=== PATIENT | male | born 1985 | race African-American/Black ===

== ENCOUNTER 2021-04-09 09:52 | Emergency (ER) | payer SELFPAY ==
[2021-04-09 10:03] VITALS: BP 137/91; PULSE 95; RESP 18; TEMP 36.1; O2SAT 100
--- NOTE | 2021-04-09 10:12 | ED.MALEGU ---
HPI - Male Genitourinary General Chief complaint: Urogenital-Male Stated complaint: STD Time Seen by Provider: 04/09/21 10:30 Source: patient and RN notes reviewed Mode of arrival: ambulatory Limitations: no limitations History of Present Illness HPI Narrative: 35-year-old male presents with concern for exposure to chlamydia. Reports his sexual partner informed him that she had chlamydia. He denies any symptoms. He denies testicular swelling, redness, pain, penile discharge, abdominal pain, dysuria, urine frequency, urinary urgency. MD Complaint: possible STD exposure Related Data Allergies Allergy/AdvReac Type Severity Reaction Status Date / Time No Known Allergies Allergy Unverified 04/26/14 16:01 Review of Systems Review of Systems: Narrative: CONSTITUTIONAL: Denies malaise, chills, sweats, or fever. GASTROINTESTINAL: Denies abdominal pain, nausea, vomiting, diarrhea, bloody GENITOURINARY: Denies dysuria, penile discharge, testicle swelling, testicle pain, or hematuria. SKIN: Denies lesions, rash or itching. MUSCULOSKELETAL: Denies myalgia. All systems reviewed & are unremarkable except as noted in HPI and below PMFSH Comments At time of signature, agree with nursing past medical, surgical, social and family history. There is no relevant family history pertinent to the presenting complaint Exam Narrative: Exam Narrative: GENERAL: Well-appearing, well-nourished, and in no acute distress. HEAD: Normocephalic. EYES: PERRLA, conjunctivae clear. NECK: Supple. No lymphadenopathy CHEST: Clear to auscultation. No respiratory distress. HEART: Regular rate and rhythm. ABDOMEN: Soft, nontender upon palpation, nondistended, normal active bowel sounds, no palpable or pulsatile masses, no guarding. No CVA tenderness SKIN: Warm, dry, no rash. NEURO: Alert and oriented x3. PSYCH: Normal mood and affect Course Course Emergency Course: Patient is aware of diagnosis, understands and agrees to treatment plan. Anticipatory guidance given. Patient agrees to follow-up as directed and is aware of reasons to seek care at the emergency department. Portions of this record may have been created with voice recognition software Vital Signs Vital signs: Vital Signs Temperature 97.0 F L 04/09/21 10:03 Pulse Rate 95 04/09/21 10:03 Respiratory Rate 18 04/09/21 10:03 Blood Pressure 137/91 H 06/18/21 10:03 Pulse Oximetry 100 04/09/21 10:03 Temperature 97.0 F L 04/09/21 10:03 Pulse Rate 95 04/09/21 10:03 Respiratory Rate 18 04/09/21 10:03 Blood Pressure 137/91 H 04/09/21 10:03 Pulse Oximetry 100 04/09/21 10:03 Reviewed. Pt has been instructed to follow up with his primary care provider within the next week regarding his elevated blood pressure today. MDM - Male Genitourinary MDM Narrative Medical decision making narrative: Exam findings show no acute concerns or changes; patient is non-toxic appearing and is in no distress. Patient is appropriate for outpatient treatment and follow-up. Differential Diagnosis Differential diagnosis: Likely urinary tract infection, urethritis, genital herpes simplex and other (STD) Critical Care Time Critical Care Time Critical Care Time: No Discharge Plan Discharge Clinical Impression: Possible exposure to STD Patient Disposition: Home, Self-Care Condition: Stable Instructions: Antibiotic Form, Safe Sex Practices (ED) Additional Instructions: You have been tested for potential gonorrhea, chlamydia, and trichomoniasis today. You have received antibiotics for gonorrhea and chlamydia today, a prescription has been called into your pharmacy to treat trichomoniasis. You will receive a phone call in 2-3 days with the results of today's testing. It is very important that you avoid unprotected intercourse for 7 days and until your partner(s) have been treated. Please encourage your partner(s) to seek testing and treatment. When you have been exposed to sexually transmi
--- NOTE | 2021-04-09 10:13 | PC.NURSE ---
in br to attempt to collect urine spec.
[2021-04-09] MEDS: cefTRIAXone 1 GM VIAL 0.5 GM IM (11:11)
[2021-04-09] MEDS: AZITHROMYCIN 250 MG TABLET 1000 MG PO (11:12)
[2021-04-09] MEDS: LIDOCAINE HCL 1% LOCAL INJ 20 ML VIAL 2.1 ML INFILTRATE (11:12)
== END 2021-04-09 11:32 | disposition home or self-care (01) ==
PROVIDERS: Emergency Provider Nurse Practitioner
DX: Z20.2 Contact with and (suspected) exposure to infections with a predominantly sexual mode of transmission (principal)
CPT/HCPCS: 87491; 87591; 87661; 96372; 99213; A9270; G0463; J0696

== ENCOUNTER 2022-10-05 23:38 | Emergency (ER) | payer SELFPAY ==
[2022-10-05 23:40] VITALS: BP 141/83; PULSE 91; RESP 18; TEMP 36.6; O2SAT 100
--- NOTE | 2022-10-05 23:58 | PC.NURSE ---
patient states that the area is actually on his buttocks states is is sore and red
--- NOTE | 2022-10-06 00:18 | ED.WOUNDLAC ---
HPI - Wound/Laceration General Chief Complaint: Wound/Laceration Stated Complaint: boil posterior thigh Time Seen by Provider: 10/06/22 00:00 Source: patient Mode of arrival: ambulatory Limitations: no limitations History of Present Illness HPI narrative: 37-year-old male presents today with complaints of pain to the left buttock area. Patient states he noticed a abscess on Monday and pain has progressively gotten worse. Patient denies any drainage, fever, body aches, chills. Patient believes he had a similar episode in the past but it went away. Related Data Allergies Allergy/AdvReac Type Severity Reaction Status Date / Time No Known Allergies Allergy Unverified 10/05/22 23:43 Review of Systems Review of Systems: CONSTITUTIONAL: Denies fever, chills, or sweats. CARDIOVASCULAR: Denies chest pain, palpitations, or edema. RESPIRATORY: Denies cough or dyspnea. GASTROINTESTINAL: Denies abdominal pain, nausea, vomiting, or diarrhea. GENITOURINARY: Denies dysuria or hematuria. SKIN: Abscess to buttock area. Denies rash or itching. Exam Narrative: GENERAL: Well-appearing, well-nourished, and in no acute distress. HEAD: Normocephalic, atraumatic. CHEST: Clear to auscultation. No respiratory distress. No wheezes rales or rhonchi HEART: Regular rate and rhythm. No murmur heard. Normal peripheral pulses. ABDOMEN: Soft, nontender, nondistended, normal active bowel sounds. SKIN: Warm, dry, no rash. Approximate 1-1/2 cm in diameter fluctuant area noted right of the rectum. No erythema noted. Area is tender. NEURO: No focal deficits. Alert and oriented x3. PSYCH: Normal mood and affect. Course Vital Signs Vital signs: Vital Signs Temperature 97.8 F 10/05/22 23:40 Pulse Rate 91 10/05/22 23:40 Respiratory Rate 18 10/05/22 23:40 Blood Pressure 141/83 H 10/05/22 23:40 Pulse Oximetry 100 10/05/22 23:40 Oxygen Delivery Room Air 10/05/22 23:40 Temperature 97.8 F 10/05/22 23:40 Pulse Rate 91 10/05/22 23:40 Respiratory Rate 18 10/05/22 23:40 Blood Pressure 141/83 H 10/05/22 23:40 Pulse Oximetry 100 10/05/22 23:40 Oxygen Delivery Room Air 10/05/22 23:40 Procedures Abscess I/D randall-rectal: Date of Incision: 10/06/22 Time of Incision: 00:50 Side (if applicable): right Sedation/analgesia: none Local Anesthetic: lidocaine 1% and with epi Amount of anesthesia used (mL): 3 Technique: incised with #11 blade and probed loculations Amount of fluid expressed (mL): 10 Irrigation: Yes (saline) Packing used?: none I&D Results: Pus and Blood Complications: pain Abcess I&D Additional Comments: fluctuant area of 1.5 cm diameter. Incision of 1cm made with 11 blade. Purulent drainage expressed. area probed and irrigated. Patient tolerated well with some pain noted. MDM - Wound/Laceration MDM Narrative Medical decision making narrative: 29-year-old male HPI as noted. Differentials as below. Small area of 1.5 cm in diameter fluctuant noted right of the rectum. No erythema noted. Patient without fever or systemic signs of infection. He is nervous. Area small no indication for imaging at this time. I&D completed as noted. Patient tolerated well with some pain noted. Purulent drainage expressed, area probed for loculations, and irrigated with saline. Antibiotics prescribed. Patient discharged with plan follow-up with primary and strict return precautions reviewed. Differential Diagnosis Differential diagnosis: Likely abscess and other (buttock pain. cyst. ) Discharge Plan Discharge Clinical Impression: Abscess Patient Disposition: Home, Self-Care Condition: Improved Additional Instructions: You are seen today for an abscess to the right buttock. The abscess was drained. Keep area clean and dry wash with soap and water. Keep dressing on it which is draining. Make sure to take all antibiotics a
[2022-10-06] MEDS: SULFAMETHOXAZOLE/TRIMETHOPRIM 800/160 MG DS TABLET 1 TAB PO (00:24)
== END 2022-10-06 01:05 | disposition home or self-care (01) ==
PROVIDERS: Emergency Provider Nurse Practitioner Family
DX: K61.1 Rectal abscess (principal)
CPT/HCPCS: 46040; 99283; A9270